=== PATIENT | male | born 1970 | race Caucasian/White ===

== ENCOUNTER → 2018-07-03 | Outpatient (CLI) | payer OTHER | LOC: M LRY 12:00 | PROVIDERS: ATTEND Physician Assistant | DX: M54.2 Cervicalgia (principal); M54.5 Low back pain; Z53.8 Procedure and treatment not carried out for other reasons ==

== ENCOUNTER → 2021-05-18 | Outpatient (CLI) | payer OTHER ==
--- NOTE | 2021-05-18 18:03 | REP ---
INDICATION: LOW BACK PAIN. COMPARISON: None. TECHNIQUE: Five views lumbosacral spine. FINDINGS: There is no compression fracture or malalignment. There is normal lumbar lordosis. There is mild spurring of L3 and L4. There is slight disc space narrowing at L1-2 through L3-4 and at L5-S1. There is sclerosis at the facets of L5-S1.. Posterior elements are intact. IMPRESSION: Mild degenerative changes. No evidence of fracture. <Electronically signed by Alex Goncalves > 05/18/21 1800
== END ==
LOC: M RAD 17:23
PROVIDERS: ATTEND Family Medicine
DX: M51.37 Other intervertebral disc degeneration, lumbosacral region (principal)

== ENCOUNTER 2022-02-04 10:26 | Day surgery (SDC) | payer OTHER ==
[~2022-02-04] VITALS: Ht 175.3 cm; Wt 90.2 kg
[~2022-02-04 10:26] MED LIST: MELO7.5T35 PO; NS 1,000 ML IV ONE
[2022-02-04] MEDS ORDERED: LIDOCAINE 2% 100MG/5ML SDV (FOR ANES.) As Ordered ONE (11:36)
[2022-02-04] MEDS ORDERED: propofoL 200 MG/20 ML VIAL As Ordered ONE (11:36)
[2022-02-04 12:25] VITALS: BP 150/87
== END 2022-02-04 12:35 | disposition home or self-care (01) ==
LOC: M OPP 10:26
PROVIDERS: ATTEND Surgery
DX: Z12.11 Encounter for screening for malignant neoplasm of colon (principal); K63.5 Polyp of colon; Z85.830 Personal history of malignant neoplasm of bone; Z79.1 Long term (current) use of non-steroidal anti-inflammatories (NSAID)

== ENCOUNTER → 2023-11-28 | Outpatient (CLI) | payer OTHER ==
[~2023-11-28] MED LIST changes: -NS 1,000 ML IV ONE
[2023-11-28 13:00] LABS: BASO % 0.5 % (0.0-1.0); EOS # 0.2 10^3/uL (0.0-0.5); EOS % 4.3 % (0.0-3.0); HEMATOCRIT 46.2 % (42.0-52.0); LYMPH # 1.4 10^3/uL (1.5-5.0); LYMPH % 31.7 % (24.0-44.0); MEAN CORPUSCULAR HEMOGLOBIN 28.5 pg (27.0-33.0); MEAN CORPUSCULAR HGB CONC 32.5 g/dl (32.0-36.5); MEAN CORPUSCULAR VOLUME 87.8 fl (80.0-96.0); MONO # 0.3 10^3/uL (0.0-0.8); MONO % 7.8 % (2.0-8.0); NEUTROPHILS # 2.4 10^3/uL (1.5-8.5); NEUTROPHILS % 55.7 % (36.0-66.0); PLATELET COUNT, AUTOMATED 224 10^3/uL (150-450); RED BLOOD COUNT 5.26 10^6/uL (4.30-6.10); WHITE BLOOD COUNT 4.4 10^3/uL (4.0-10.0)
[2023-11-28 13:12] LABS: ERYTHROCYTE SEDIMENTATION RATE 6 mm/hr (0-20)
[2023-11-28 13:36] LABS: C REACTIVE PROTEIN QUANTITATIV < 0.40 MG/DL (<1.0)
[2023-11-28 13:37] LABS: ALKALINE PHOSPHATASE 66 U/L (46-116); ALT/SGPT 44 U/L (7.0-40); AST/SGOT 23 U/L (<34); BILIRUBIN,TOTAL 0.4 MG/DL (0.3-1.2); BLOOD UREA NITROGEN 11 MG/DL (9-23); CALCIUM LEVEL 9.3 MG/DL (8.5-10.1); CARBON DIOXIDE LEVEL 29 MMOL/L (20-31); CHLORIDE LEVEL 108 MMOL/L (98-107); CREATININE FOR GFR 1.04 MG/DL (0.70-1.30); GLOMERULAR FILTRATION RATE > 60.0 (>56); GLUCOSE, FASTING 84 MG/DL (60-100); POTASSIUM SERUM 4.8 MMOL/L (3.5-5.1); SODIUM LEVEL 143 MMOL/L (136-145); TOTAL PROTEIN 6.8 G/DL (5.7-8.2)
[2023-11-28 13:38] LABS: RHEUMATOID FACTOR QUANT 8.4 IU/ML (<14)
== END ==
LOC: M LAB 10:21
PROVIDERS: ATTEND Physician Assistant
DX: Z13.0 Encounter for screening for diseases of the blood and blood-forming organs and certain disorders involving the immune mechanism (principal)